=== PATIENT | female | born 1985 | race Two or more races ===

== ENCOUNTER 2022-02-07 06:00 | Inpatient (IN) | payer OTHER ==
[~2022-02-07] VITALS: Ht 157.5 cm; Wt 71.7 kg
[~2022-02-07 06:00] MED LIST: SYNTHROID100 MCG PO
== END 2022-02-09 18:12 | disposition home or self-care (01) | DRG 743 ==
LOC: CIR.AMB 06:00 → O/R 07:00 → OB/GYN 07:00 → CIR.AMB 12:15 → OB/GYN 20:34
PROVIDERS: ADMIT Obstetrics & Gynecology; ATTEND Obstetrics & Gynecology
PROC: 0UB90ZZ Excision of Uterus, Open Approach (ICD-10-PCS; 2022-02-07)
PROC: 0UJD4ZZ Inspection of Uterus and Cervix, Percutaneous Endoscopic Approach (ICD-10-PCS; principal; 2022-02-07 13:15)
DX: D25.2 Subserosal leiomyoma of uterus (principal); Z20.822 Contact with and (suspected) exposure to COVID-19; Z53.31 Laparoscopic surgical procedure converted to open procedure

== ENCOUNTER 2025-06-03 09:00 | Day surgery (SDC) | payer OTHER ==
[2025-05-27 11:54] LABS: BASO % 1.4 % (0.1-1.2); EOS # 0.24 (0.04-0.54); EOS % 3.1 % (0.7-7.0); LYMPH # 2.72 (1.18-3.74); LYMPH % 35.4 % (19.3-53.1); MEAN PLATELET VOLUME 10.40 fl (9.4-12.4); MONO # 0.64 (0.24-0.82); MONO % 8.3 % (4.7-12.5); NEUT # 3.96 (1.56-6.13); NEUT % 51.7 % (34.0-71.1); RED CELL DISTRIBUTION WIDTH 13.9 % (11.6-14.4)
[2025-05-27 12:21] LABS: URINE APPEARANCE Cloudy; URINE BILIRRUBIN Negative (NEGATIVE); URINE BLOOD Moderate; URINE COLOR Yellow; URINE GLUCOSE Negative (NEGATIVE); URINE KETONE Negative (NEGATIVE); URINE LEUKOCYTE Trace; URINE NITRATE Negative; URINE PROTEIN Negative (NEGATIVE); URINE UROBILINOGEN 0.2 E.U./dl
[2025-05-27 12:24] LABS: URINE BACTERIA 351.6 uL (0.0-1933); URINE EPITHELIAL CELLS 34.7 uL (0.0-38.8); URINE RBC 97.2 uL (0.0-20.8); URINE WBC 5.8 uL (0.0-23.2)
[2025-05-27 12:27] LABS: ALT/SGPT 43.0 U/L (12-78); AST/SGOT 22.0 U/L (15-37); BILIRUBIN TOTAL 0.64 mg/dL (0.3-1.2); BUN CREA RATIO 17.0 (7.0-25.0); CREATININE SERUM 0.66 mg/dL (0.55-1.02); GFR 98.69; GLOBULINA 3.1 G/DL (2.4-3.5); GLUCOSE FASTING 105.0 mg/dL (65-100); INR 0.98; OSMOLALITY SERUM 281.0 MOSM/KG (275-295)
[2025-05-27 12:42] VITALS: BP 116/83
[2025-05-27 13:09] LABS: URINE CAST 0.00 uL (0.0-1.40)
[~2025-06-03] VITALS: Ht 157.5 cm; Wt 65.8 kg
[~2025-06-03 09:00] MED LIST changes: +SINGULAIR10 MG PO; +ZETIA10 MG PO
[2025-06-03] MEDS ORDERED: CEFTRIAXONE SODIUM 2,000 MG VIAL ONE (10:31)
[2025-06-03] MEDS ORDERED: METRONIDAZOLE/SODIUM CHLORIDE 500 MG/100 ML PIGGYBACK IV ONE (10:31)
[2025-06-03] MEDS ORDERED: POVIDONE-IODINE 118 ML BOTT TOP ONE (14:01)
[2025-06-03] MEDS ORDERED: DIBUCAINE 30 GM TUBE ONE (14:01)
[2025-06-03] MEDS ORDERED: BUPIVACAINE HCL/Mpf 0.5% 10ML VIAL ONE (14:01)
[2025-06-03] MEDS ORDERED: LIDOCAINE HCL 1%/EPINEPHRINE 20ML VIAL IJ ONE (14:02)
[2025-06-03] MEDS ORDERED: HEMOSTATIC MATRIX 1 KIT KIT TOP ONE (14:14)
[2025-06-03] MEDS ORDERED: PERCOCET 5-3251 EACH PO (15:03)
[2025-06-03] MEDS ORDERED: RECTICARE30 GM TOP (15:04)
== END 2025-06-03 19:10 | disposition home or self-care (01) ==
LOC: CIR.AMB 09:00
PROVIDERS: ATTEND Surgery
DX: K64.2 Third degree hemorrhoids (principal); K64.1 Second degree hemorrhoids; K60.1 Chronic anal fissure